=== PATIENT | female | born 1990 | race Caucasian/White ===

== ENCOUNTER 2017-09-29 18:26 | Emergency (ER) | payer OTHER ==
[2017-09-29 18:46] VITALS: BP 131/61; PULSE 97; TEMP 99.3
--- NOTE | 2017-09-29 18:56 | PDOC ---
Rapid Medical Evaluation Time Seen by Provider: 09/29/17 18:43 Medical Evaluation: Allergies Allergy/AdvReac Type Severity Reaction Status Date / Time No Known Allergies Allergy Verified 09/29/17 18:46 Vital Signs Temp Pulse Resp BP Pulse Ox 99.3 F 97 H 18 131/61 98 09/29/17 18:43 09/29/17 18:43 09/29/17 18:43 09/29/17 18:43 09/29/17 18:43 09/29/17 18:55 I have performed a brief in-person evaluation of this patient. The patient presents with a chief complaint of: sore throat Pertinent physical exam findings:vss I have ordered the following: none The patient will proceed to the ED for further evaluation.
[2017-09-29] MEDS ORDERED: DEXAMETHASONE SOD PHOSPHATE 10 MG/1 ML VIAL IM ONE (21:37)
[2017-09-29] MEDS ORDERED: DEXAMETHASONE SOD PHOSPHATE 10 MG/1 ML VIAL ONE (21:38)
--- NOTE | 2017-09-29 21:41 | PDOC ---
History of Present Illness - General Chief Complaint: Sore Throat Stated Complaint: SORE THROAT Time Seen by Provider: 09/29/17 18:43 History Source: Patient Exam Limitations: No Limitations - History of Present Illness Initial Comments: 09/29/17 21:37 Patient came for evaluation of persistent and worsening cough/laryngitis 2 days. Son with same 2 days Past History - Travel Traveled outside of the country in the last 30 days: No Close contact w/someone who was outside of country & ill: No - Past Medical History Allergies/Adverse Reactions: Allergies Allergy/AdvReac Type Severity Reaction Status Date / Time No Known Allergies Allergy Verified 09/29/17 18:46 Home Medications: Ambulatory Orders NK [No Known Home Medication] 09/29/17 COPD: No - Suicide/Smoking/Psychosocial Hx Smoking History: Never smoked Review of Systems - Review of Systems Able to Perform ROS?: Yes Is the patient limited [place] proficient: Yes Constitutional: Yes: Symptoms Reported, See HPI, Chills, Fever, Loss of Appetite , Malaise HEENTM: Yes: Symptoms Reported, See HPI, Nose Congestion, Throat Pain. No: Throat Swelling Respiratory: Yes: Symptoms reported, See HPI, Cough. No: Wheezing ABD/GI: No: Nausea Musculoskeletal: No: Symptoms Reported Integumentary: Yes: Symptoms Reported, See HPI Neurological: Yes: See HPI. No: Symptoms reported All Other Systems: Reviewed and Negative *Physical Exam - Vital Signs Last Vital Signs Temp Pulse Resp BP Pulse Ox 99.3 F 97 H 18 131/61 98 09/29/17 18:43 09/29/17 18:43 09/29/17 18:43 09/29/17 18:43 09/29/17 18:43 - Physical Exam General Appearance: Yes: Nourished, Appropriately Dressed, Apparent Distress, Mild Distress HEENT: positive: HARINI, Normal ENT Inspection, TMs Normal (Congested but landmarks y visualized), Pharynx Normal Neck: positive: Trachea midline (no wheezing or retractions), Supple. 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 II-XII NML intact, Fully Oriented, Alert, Normal Mood/ Affect, Normal Response, Motor Strength 04/01 Medical Decision Making - Medical Decision Making 09/29/17 21:40 boo, we'll treat conservatively and given one dose of steroids to help with inflammatory cough *DC/Admit/Observation/Transfer Diagnosis at time of Disposition: Laryngitis - Discharge Dispostion Disposition: HOME Condition at time of disposition: Stable Admit: No - Patient Instructions Printed Discharge Instructions: DI for Laryngitis Additional Instructions: Rest, drink lots of fluids: Teas, water, soups, Pedialyte Saltwater gargles Steamy showers/seem to face break up mucus Avoid contact with others until fevers and cough resolved Lots of handwashing and good hygiene Continue [id number] medications for symptomatic relief Tylenol or Motrin for fever and pain Followup with private physician in one to 2 days as needed Return to emergency department for worsened symptoms, fevers, dehydration you have been given 10 mg of Decadron as 1 time dose of steroids to help calm facial inflammation and cough - Post Discharge Activity Forms/Work/School Notes: Back to Work
== END 2017-09-29 21:49 | disposition home or self-care (01) ==
LOC: JERFT 18:26
PROC: 3E0233Z Introduction of Anti-inflammatory into Muscle, Percutaneous Approach (ICD-10-PCS; principal; 2017-09-29)
DX: J04.0 Acute laryngitis (principal)
CPT/HCPCS: 99281-25